=== PATIENT | female | born 1990 | race Caucasian/White ===

== ENCOUNTER 2021-11-04 16:23 | Emergency (ER) | payer OTHER ==
[~2021-11-04] VITALS: Ht 167.6 cm; Wt 94.3 kg
[2021-11-04] MEDS ORDERED: DICLOFENAC SODI75 MG PO (19:05)
[2021-11-04] MEDS ORDERED: NORFLEX100MG PO (19:05)
== END 2021-11-04 19:18 | disposition home or self-care (01) ==
LOC: ER 16:23
DX: M25.521 Pain in right elbow (principal); M79.89 Other specified soft tissue disorders